=== PATIENT | male | born 1980 | race Caucasian/White ===

== ENCOUNTER 2020-02-11 17:53 | Emergency (ER) | payer OTHER ==
[2020-02-11 17:59] VITALS: BP 128/79; PULSE 74; RESP 18; TEMP 97.7
--- NOTE | 2020-02-11 18:30 | XR ---
Result: History: Pain. Comparison: None available. Technique: 4 views of the right wrist. Findings: No acute fracture or dislocation is seen. The visualized osseous structures are in anatomic alignmen t. The joint spaces are preserved. Impression: No acute fracture or dislocation.
--- NOTE | 2020-02-11 19:13 | ED ---
General Adult HPI - General Chief complaint: Extremity Injury, Upper Stated complaint: Wrist Injury Time Seen by Provider: 02/11/20 19:02 Source: patient Mode of arrival: ambulatory Limitations: no limitations - History of Present Illness Initial comments: 39-year-old male presenting to emergency with a chief complaint of wrist injury. Patient states he was wrestling with the son about one hour prior to arrival when he injured his right wrist. Patient reports now he has limited range of motion due to pain. Patient states the pain is throughout his whole wrist. Denies any swelling ecchymosis or erythema in the region. Denies any numbness or tingling. Does report taking ibuprofen to alleviate some of the symptoms. - Related Data Home Medications Medication Instructions Recorded Confirmed Buprenorphine HCl/Naloxone HCl 1 tab PO BID 02/02/15 02/02/15 [Suboxone 8 mg-2 mg Sl Film] Cholecalciferol [Vitamin D3] 4,000 units PO DAILY 02/02/15 02/02/15 FLUoxetine HCL [PROzac] 60 mg pe PO DAILY 02/02/15 02/02/15 Naproxen 500 mg PO BID PRN 02/02/15 02/02/15 Previous Rx's Medication Instructions Recorded Ondansetron [Zofran] 4 mg PO Q8HR PRN #10 tab 02/02/15 Allergies Allergy/AdvReac Type Severity Reaction Status Date / Time muscle relaxers Allergy Unknown Uncoded 02/11/20 17:59 Review of Systems ROS Statement: Those systems with pertinent positive or pertinent negative responses have been documented in the HPI. ROS Other: All systems not noted in ROS Statement are negative. Past Medical History Past Medical History: No Reported History History of Any Multi-Drug Resistant Organisms: None Reported Additional Past Surgical History / Comment(s): hip surgery, back surgery, bilateral shoulders Past Psychological History: Depression Smoking Status: Never smoker Past Alcohol Use History: Rare Past Drug Use History: None Reported General Exam Limitations: no limitations General appearance: alert, in no apparent distress Head exam: Present: atraumatic, normocephalic, normal inspection Eye exam: Present: normal appearance, PERRL, EOMI Pupils: Present: normal accommodation ENT exam: Present: normal exam, normal oropharynx, mucous membranes moist, TM's normal bilaterally, normal external ear exam Neck exam: Present: normal inspection, full ROM. Absent: tenderness Respiratory exam: Present: normal lung sounds bilaterally. Absent: respiratory distress, wheezes, rales Cardiovascular Exam: Present: regular rate, normal rhythm, normal heart sounds. Absent: bradycardia, tachycardia Extremities exam: Present: normal inspection, tenderness (Snuffbox tenderness.), normal capillary refill, other (+2 ulnar and radial pulses bilaterally. Sensation intact in the right upper extremity.). Absent: full ROM (Limited range of motion with wrist flexion extension rotation due to pain.), pedal edema, joint swelling, calf tenderness Back exam: Present: normal inspection, full ROM. Absent: tenderness, CVA tenderness (R), CVA tenderness (L) Neurological exam: Present: alert, oriented X3, normal gait Psychiatric exam: Present: normal affect, normal mood. Absent: agitated Skin exam: Present: warm, dry, intact, normal color Course Vital Signs 02/11/20 17:57 Temperature 97.7 F Pulse Rate 74 Respiratory 18 Rate Blood Pressure 128/79 O2 Sat by Pulse 98 Oximetry Procedures - Orthopedic Splinting/Casting Injury #1 Side: right Upper Extremity Injury Location: wrist Upper Extremity Immobilizer: thumb spica, Killian wrap, synthetic pre-padded splint Medical Decision Making - Medical Decision Making 39-year-old male presenting to the emergency department with a chief complaint of right hand injury. On physical examination patient is limited range of motion but no signs of ecchymosis swelling or erythema. Patient does have snuffbox tenderness. X-ray was unremarkable. Thumb spica was applied and he was advised to obtain a repeat x-ray in 7-10 days and follow-up with bi specialist. I gave the patient an order for repeat x-ray. I offered analgesia, he declined. I advised him to [place]. Return parameters thoroughly discussed the patient is an attending agreeable. Case discussed with physician. Disposition Clinical Impression: Right wrist injury, Sprain of wrist, right Disposition: HOME SELF-CARE Condition: Stable Instructions (If sedation given, give patient instructions): Wrist Injury (ED) Additional Instructions: Follow-up with bi specialist and obtain a repeat x-ray in 7-10 days. Alternate between Tylenol and Motrin for pain control. Apply ice compress. Return to emergency department if symptoms worsen. Is patient prescribed a controlled substance at d/c from ED?: No Referrals: Nonstaff,Physician [REFERRING] - 1-2 days David Hodgson DO [Doctor of Osteopathic Medicine] - 1-2 days Time of Disposition: 19:12
== END 2020-02-11 19:32 | disposition home or self-care (01) ==
LOC: EC 17:53
DX: S63.501A Unspecified sprain of right wrist, initial encounter (principal); F32.9 Major depressive disorder, single episode, unspecified; Z88.8 Allergy status to other drugs, medicaments and biological substances; Z98.890 Other specified postprocedural states; X58.XXXA Exposure to other specified factors, initial encounter; Y93.72 Activity, wrestling
CPT/HCPCS: 29125; 99283

== ENCOUNTER → 2020-02-18 | Outpatient (CLI) | payer SELFPAY ==
--- NOTE | 2020-02-18 11:49 | XR ---
EXAMINATION TYPE: XR wrist complete RT DATE OF EXAM: 02/18/2020 CLINICAL HISTORY: pain TECHNIQUE: Frontal, lateral and oblique images of the right wrist are obtained. COMPARISON: 02/18/2020 FINDINGS: Overlying cast material does obscure fine bony detail. There is no acute fracture/dislocation evident . The joint spaces appear within normal limits. The overlying soft tissue appears unremarkable. IMPRESSION: There is no acute fracture or dislocation seen. ICD 10 NO FRACTURE, INITIAL EVALUATION
== END | disposition home or self-care (01) ==
LOC: RADXRMAIN 08:33
PROVIDERS: ATTEND Physician Assistant Medical
DX: S69.91XA Unspecified injury of right wrist, hand and finger(s), initial encounter (principal)

== ENCOUNTER 2024-02-04 00:51 | Emergency (ER) | payer SELFPAY ==
--- NOTE | 2024-02-04 01:51 | ED ---
General Adult HPI - General Source: patient, EMS, RN notes reviewed Mode of arrival: EMS Limitations: no limitations <qIra العلي - Last Filed: 02/04/24 01:48> - History of Present Illness Severity scale (1-10): 0 Consistency: now resolved Improves with: none Worsens with: none <Abdias Humphrey - Last Filed: 02/04/24 18:16> - General Chief complaint: Weakness Stated complaint: Syncope Time Seen by Provider: 02/04/24 01:48 - History of Present Illness Initial comments: Estefany bennett is a 43-year-old male with no significant past medical history presenting for near syncope 2 hours ago. States he began to feel hot earlier this evening, and when he went outside to smoke, he began to sweat profusely. He states he felt his heart racing and felt weak and lightheaded. States symptoms resolved during EMS ride here. Denies chest pain or shortness of breath. States he has had similar episodes in the past however they have not been this severe. States he takes no medications. Denies any health conditions. (Iqra العلي) Agree with above (Abdias Humphrey) - Related Data Home Medications Medication Instructions Recorded Confirmed Buprenorphine HCl/Naloxone HCl 1 tab PO BID 02/02/15 02/02/15 [Suboxone 8 mg-2 mg Sl Film] Cholecalciferol [Vitamin D3] 4,000 units PO DAILY 02/02/15 02/02/15 FLUoxetine HCL [PROzac] 60 mg pe PO DAILY 02/02/15 02/02/15 Naproxen 500 mg PO BID PRN 02/02/15 02/02/15 Previous Rx's Medication Instructions Recorded Ondansetron [Zofran] 4 mg PO Q8HR PRN #10 tab 02/02/15 Allergies Allergy/AdvReac Type Severity Reaction Status Date / Time muscle relaxers Allergy Unknown Uncoded 02/04/24 01:00 Review of Systems ROS Other: All systems not noted in ROS Statement are negative. <Iqra العلي - Last Filed: 02/04/24 01:48> ROS Other: All systems not noted in ROS Statement are negative. Constitutional: Denies: fever, chills Respiratory: Denies: cough, dyspnea Cardiovascular: Reports: palpitations, syncope (Near syncope). Denies: orthopnea, edema Gastrointestinal: Denies: abdominal pain, nausea, vomiting Genitourinary: Denies: dysuria, hematuria Musculoskeletal: Denies: back pain Skin: Denies: rash Neurological: Denies: headache, weakness, numbness Psychiatric: Reports: anxiety <Abdias Humphrey - Last Filed: 02/04/24 18:16> ROS Statement: Those systems with pertinent positive or pertinent negative responses have been documented in the HPI. Past Medical History Past Medical History: No Reported History History of Any Multi-Drug Resistant Organisms: None Reported Past Surgical History: Cholecystectomy, Hernia Repair Additional Past Surgical History / Comment(s): hip surgery, back surgery, bilateral shoulders Past Psychological History: Depression Smoking Status: Current every day smoker, Vaper Past Alcohol Use History: Rare Past Drug Use History: Marijuana <Iqra العلي - Last Filed: 02/04/24 01:48> General Exam Limitations: no limitations <Iqra العلي - Last Filed: 02/04/24 01:48> Limitations: no limitations General appearance: alert, in no apparent distress Head exam: Present: atraumatic, normocephalic Eye exam: Present: normal appearance. Absent: scleral icterus, conjunctival injection Neck exam: Present: normal inspection Respiratory exam: Present: normal lung sounds bilaterally. Absent: respiratory distress, wheezes, rales, rhonchi, stridor, chest wall tenderness, accessory muscle use Cardiovascular Exam: Present: regular rate, normal rhythm, normal heart sounds. Absent: systolic murmur, diastolic murmur, rubs, gallop GI/Abdominal exam: Present: soft. Absent: distended, tenderness, guarding, adrien ound, rigid, mass Extremities exam: Present: normal inspection, normal capillary refill. Absent: pedal edema, calf tenderness Back exam: Present: normal inspection. Absent: CVA tenderness (R), CVA tenderness (L) Neurological exam: Present: alert Skin exam: Present: warm, dry, intact, normal color. Absent: rash <Abdias Humphrey - Last Filed: 02/04/24 18:16> - General Exam Comments Initial Comments: Visual Physical Exam Vital signs reviewed General: Well-appearing, nontoxic, no acute distress. Head: Normocephalic, atraumatic Eyes: PERRLA, EOMI ENT: Airway patent Chest: Nonlabored breathing Skin: No visual rash, normal skin tone Neuro: Alert and oriented 3 Musculoskeletal: No gross abnormalities (Iqra العلي) Course Vital Signs 02/04/24 02/04/24 00:54 04:24 Temperature 97.3 F L 97.7 F Pulse Rate 69 68 Respiratory 20 16 Rate Blood Pressure 117/80 123/78 O2 Sat by Pulse 98 98 Oximetry EKG Findings - EKG Results: EKG: interpreted by ERMD, sinus rhythm (Rate 57 bpm), normal axis, normal ST/T - Blocks, [place], Hypertrophy, ST Abn: Repolarization changes or abnormalities: early repolarization (normal variant) <Abdias Humphrey - Last Filed: 02/04/24 18:16> Medical Decision Making <Iqra العلي - Last Filed: 02/04/24 01:48> - Lab Data Result diagrams: 02/04/24 01:47 02/04/24 01:47 <Abdias Humphrey - Last Filed: 02/04/24 18:16> - Medical Decision Making I completed the quick note portion of this chart signed Iqra العلي PA-C (Iqra العلي) On reevaluation, patient is feeling well. I offered admission to have cardiology consultation, but at this point the patient states he would prefer to follow-up as outpatient. He does agree to return should any symptoms recur or if new symptoms develop. The history very suggestive of episode of SVT. The patient noticed that his heart started racing and all of the other symptoms came on. The patient was told that his heart was racing. The symptoms resolved when the heart rate came down. Patient also advised to decrease smoking. Discussed appropriate further care and follow-up as well as return parameters Was pt. sent in by a medical professional or institution ([facility], [employer], urgent care, hospital, or half-way...) When possible be specific @ -[No] Did you speak to anyone other than the patient for history (EMS, parent, family, police, friend...)? What history was obtained from this source @ -[No] Did you review nursing and triage notes (agree or disagree)? Why? @ -[I reviewed and agree with nursing and triage notes] Were old charts reviewed (outside hosp., previous admission, EMS record, old EKG, old radiological studies, urgent care reports/EKG's, half-way records)? Report findings @ -[No old charts were reviewed] Differential Diagnosis (chest pain, altered mental status, abdominal pain women, abdominal pain men, vaginal bleeding, weakness, fever, dyspnea, syncope, headache, dizziness, GI bleed, back pain, seizure, CVA, palpatations, mental health, musculoskeletal)? @ -[Differential Palpitations Ventricular arrhythmias, atrial arrhythmias, myocardial infarction, anemia, thyrotoxicosis, electrolyte imbalance, hypokalemia, pulmonary embolism, pulmonary disease, drugs, alcohol, anxiety, stress.... This is not meant to be an all-inclusive list. EKG interpreted by me (3pts min.). @ -[I interpreted as above] X-rays interpreted by me (1pt min.). @ -[None done] CT interpreted by me (1pt min.). @ -[None done] U/S interpreted by me (1pt. min.). @ -[None done] What testing was considered but not performed or refused? (CT, X-rays, U/S, lab s)? Why? @ -[None] What meds were considered but not given or refused? Why? @ -[None] Did you discuss the management of the patient with other professionals (professionals i.e. , PA, [employer], lab, RT, psych nurse, high school social studies teacher, egg producer, teacher, nuclear security officer, case assistant)? Give summary @ -[No] Was smoking cessation discussed for >3mins.? @ -[No] Was critical care preformed (if so, how long)? @ -[No] Were there social determinants of health that impacted care today? How? (Homelessness, low income, unemployed, alcoholism, drug addiction, transportation, low edu. Level, literacy, decrease access to med. care, long-term, rehab)? @ -[No] Was there de-escalation of care discussed even if they declined (Discuss DNR or withdrawal of care, Hospice)? DNR status @ -[No] What co-morbidities impacted this encounter? (DM, HTN, Smoking, COPD, CAD, Cancer, CVA, ARF, Chemo, Hep., AIDS, mental health diagnosis, sleep apnea, morbid obesity)? @ -[None] Was patient admitted / discharged? Hospital course, mention meds given and route, prescriptions, significant lab abnormalities, going to OR and other pertinent info. @ -[This patient is 43-year-old man otherwise healthy who presents with what sounds like episode of SVT that had resolved. The patient had physical exam and workup that is unremarkable. Patient was offered admission but at this point would like to go home and would [facility] We discussed appropriate further care and follow-up as well as return parameters Undiagnosed new problem with uncertain prognosis? @ -[No] Drug Therapy requiring intensive monitoring for toxicity (Heparin, Nitro, Insulin, Cardizem)? @ -[No] Were any procedures done? @ -[No] Diagnosis/symptom? @ -[Palpitations Near syncopal episode Possible SVT Acute, or Chronic, or Acute on Chronic? @ -[Acute Uncomplicated (without systemic symptoms) or Complicated (systemic symptoms)? @ -[Uncomplicated Side effects of treatment? @ -[No] Exacerbation, Progression, or Severe Exacerbation? @ -[No] Poses a threat to life or bodily function? How? (Chest pain, [place], [place], pneumonia, PE, COPD, DKA, ARF, appy, cholecystitis, CVA, Diverticulitis, Homicidal, Suicidal, threat to staff... and all critical care pts) @ -[No] (Abdias Humphrey) - Lab Data Lab Results 02/04/24 02/04/24 02/04/24 Range/Units 01:47 01:47 01:47 WBC 9.0 (3.8-10.6) k/uL RBC 4.93 (4.30-5.90) m/uL Hgb 15.8 (13.0-17.5) gm/dL Hct 45.6 (39.0-53.0) % MCV 92.6 (80.0-100.0) fL MCH 32.1 (25.0-35.0) pg MCHC 34.7 (31.0-37.0) g/dL RDW 12.8 (11.5-15.5) % Plt Count 137 L (150-450) k/uL MPV 11.7 Neutrophils % 71 % Lymphocytes % 22 % Monocytes % 5 % Eosinophils % 1 % Basophils % 0 % Neutrophils # 6.4 (1.3-7.7) k/uL Lymphocytes # 2.0 (1.0-4.8) k/uL Monocytes # 0.4 (0-1.0) k/uL Eosinophils # 0.1 (0-0.7) k/uL Basophils # 0.0 (0-0.2) k/uL PT 12.0 (10.0-12.5) sec INR 1.1 (<1.2) APTT 24.4 (22.0-30.0) sec Sodium 136 L (137-145) mmol/L Potassium 4.3 (3.5-5.1) mmol/L Chloride 106 (98-107) mmol/L Carbon Dioxide 25 (22-30) mmol/L Anion Gap 5 mmol/L BUN 14 (9-20) mg/dL Creatinine 0.70 (0.66-1.25) mg/dL Est GFR (CKD-EPI)AfAm >90 (>60 ml/min/1.73 sqM) Est GFR (CKD-EPI)NonAf >90 (>60 ml/min/1.73 sqM) Glucose 107 H (74-99) mg/dL Calcium 9.1 (8.4-10.2) mg/dL Magnesium 2.1 (1.6-2.3) mg/dL Total Bilirubin 0.8 (0.2-1.3) mg/dL AST 60 H (17-59) U/L ALT 51 H (4-49) U/L Alkaline Phosphatase 76 (38-126) U/L Troponin I (0.000-0.034) ng/mL Total Protein 8.2 (6.3-8.2) g/dL Albumin 4.8 (3.5-5.0) g/dL 02/04/24 Range/Units 01:47 WBC (3.8-10.6) k/uL RBC (4.30-5.90) m/uL Hgb (13.0-17.5) gm/dL Hct (39.0-53.0) % MCV (80.0-100.0) fL MCH (25.0-35.0) pg MCHC (31.0-37.0) g/dL RDW (11.5-15.5) % Plt Count (150-450) k/uL MPV Neutrophils % % Lymphocytes % % Monocytes % % Eosinophils % % Basophils % % Neutrophils # (1.3-7.7) k/uL Lymphocytes # (1.0-4.8) k/uL Monocytes # (0-1.0) k/uL Eosinophils # (0-0.7) k/uL Basophils # (0-0.2) k/uL PT (10.0-12.5) sec INR (<1.2) APTT (22.0-30.0) sec Sodium (137-145) mmol/L Potassium (3.5-5.1) mmol/L Chloride (98-107) mmol/L Carbon Dioxide (22-30) mmol/L Anion Gap mmol/L BUN (9-20) mg/dL Creatinine (0.66-1.25) mg/dL Est GFR (CKD-EPI)AfAm (>60 ml/min/1.73 sqM) Est GFR (CKD-EPI)NonAf (>60 ml/min/1.73 sqM) Glucose (74-99) mg/dL Calcium (8.4-10.2) mg/dL Magnesium (1.6-2.3) mg/dL Total Bilirubin (0.2-1.3) mg/dL AST (17-59) U/L ALT (4-49) U/L Alkaline Phosphatase (38-126) U/L Troponin I 0.015 (0.000-0.034) ng/mL Total Protein (6.3-8.2) g/dL Albumin (3.5-5.0) g/dL Disposition <Iqra العلي - Last Filed: 02/04/24 01:48> Is patient prescribed a controlled substance at d/c from ED?: No <Abdias Humphrey - Last Filed: 02/04/24 18:16> Clinical Impression: Palpitations, Near syncope Narrative: Suspected SVT (Abdias Humphrey) Disposition: HOME SELF-CARE Condition: Good Instructions (If sedation given, give patient instructions): Heart Palpitations (DC), Near Syncope (ED) Referrals: None,Stated [Primary Care Provider] - 1-2 days Westley Shelby MD [STAFF PHYSICIAN] - 1-2 days
[2024-02-04 01:55] LABS: Basophils % (A) 0 %; Eosinophils # (A) 0.1 k/uL (0-0.7); Eosinophils % (A) 1 %; HCT 45.6 % (39.0-53.0); HGB 15.8 gm/dL (13.0-17.5); Lymphocytes % (A) 22 %; MCH 32.1 pg (25.0-35.0); MCHC 34.7 g/dL (31.0-37.0); MCV 92.6 fL (80.0-100.0); Mean Platelet Volume 11.7; Monocytes # (A) 0.4 k/uL (0-1.0); Monocytes % (A) 5 %; Neutrophils # (A) 6.4 k/uL (1.3-7.7); Neutrophils % (A) 71 %; Platelet Count 137 k/uL (150-450); RBC 4.93 m/uL (4.30-5.90); RDW 12.8 % (11.5-15.5)
[2024-02-04 02:23] LABS: ALT 51 U/L (4-49); African American GFR (CKD) >90 (>60 ml/min/1.73 sqM); Albumin 4.8 g/dL (3.5-5.0); Anion Gap 5 mmol/L; Blood Urea Nitrogen 14 mg/dL (9-20); Calcium 9.1 mg/dL (8.4-10.2); Carbon Dioxide 25 mmol/L (22-30); Chloride 106 mmol/L (98-107); Glucose 107 mg/dL (74-99); Non-African American GFR(CKD) >90 (>60 ml/min/1.73 sqM); Sodium 136 mmol/L (137-145); Total Bilirubin 0.8 mg/dL (0.2-1.3); Total Protein 8.2 g/dL (6.3-8.2)
[2024-02-04 02:31] LABS: Potassium 4.3 mmol/L (3.5-5.1)
[2024-02-04 02:32] LABS: AST 60 U/L (17-59); Alkaline Phosphatase 76 U/L (38-126); Magnesium 2.1 mg/dL (1.6-2.3)
[2024-02-04 02:47] LABS: INR 1.1 (<1.2); Partial Thromboplastin Time 24.4 sec (22.0-30.0)
[2024-02-04 04:26] VITALS: BP 123/78; PULSE 68; RESP 16; TEMP 97.7
== END 2024-02-04 04:26 | disposition home or self-care (01) ==
LOC: EC 00:51
DX: R00.2 Palpitations (principal); R55 Syncope and collapse; F17.290 Nicotine dependence, other tobacco product, uncomplicated; Z90.49 Acquired absence of other specified parts of digestive tract
CPT/HCPCS: 36415; 80053; 83735; 84484; 85025; 85610; 85730; 93005; 99285